=== PATIENT | female | born 1985 | race Caucasian/White ===

== ENCOUNTER 2021-11-26 13:50 | Emergency (ER) | payer OTHER, SELFPAY ==
--- NOTE | ~2021-11-26 | XR_ITS ---
EXAMINATION: XR chest 1V portable INDICATION: Transient alteration of awareness TECHNIQUE: Portable AP chest at 1603 hours COMPARISON: None available FINDINGS: The lungs are free of acute opacities. No pleural effusion or pneumothorax. The cardiomedia stinal silhouette is normal. There is dextrocurvature of the upper thoracic spine. IMPRESSION: 1. No acute cardiopulmonary abnormality. Reviewed, dictated and finalized at location A.
[2021-11-26 13:56] VITALS: BP 109/74; PULSE 91; RESP 16; TEMP 36.4; O2SAT 100
--- NOTE | 2021-11-26 13:59 | ECG_ITS ---
Measurements Intervals [place] Rate: 77 P: 3 UT: 132 QRS: 3 QRSD: 97 T: 7 QT: 374 QTc: 425 Interpretive Statements SINUS RHYTHM INCOMPLETE RIGHT BUNDLE BRANCH BLOCK CONSIDER INFERIOR INFARCT, AGE INDETERMINATE BORDERLINE T WAVE ABNORMALITY- ANTERIOR LEADS BASELINE ARTIFACT- I, V1-V2 ABNORMAL ECG NO PREVIOUS ECG AVAILABLE FOR COMPARISON Electronically Signed On 11-26-2021 15:52:32 CDT by Albert Mosqueda D.O.
--- NOTE | 2021-11-26 14:12 | PC.NURSE ---
patient passed out when attempting to obtain blood work at this time, will attempt again later.
[2021-11-26 15:51] VITALS: BP 120/82; PULSE 82; RESP 20; O2SAT 100
[2021-11-26] MEDS: SODIUM CHLORIDE 0.9% IV 1,000 ML 999 ML IV CONT ×2 (16:03→17:34)
[2021-11-26 16:09] LABS: Basophils Absolute Auto 0.1 K/mm3 (0.0-0.1); Basophils Percent Auto 0.5 % (0.2-1.2); Eosinophils Percent Auto 0.3 % (0-4.4); Hemoglobin 14.3 g/dL (12.0-15.0); Immature Granulocyte Absolute 0.04 K/mm3 (0.00-0.031); Immature Granulocyte Percent A 0.4 % (0-0.5); Mean Corpuscular HGB Conc 32.5 g/dl (32-36); Mean Corpuscular Hemoglobin 29.9 pg (26-34); Mean Corpuscular Volume 92.1 fl (80-100); Mean Platelet Volume 9.1 fl (7.4-10.4); Monocytes Absolute Auto 0.6 K/mm3 (0.1-0.6); Monocytes Percent Auto 5.6 % (2.6-8.5); Neutrophils Absolute Auto 7.7 K/mm3 (1.3-6.7); Neutrophils Percent Auto 77.2 % (45.5-73.1); Platelet Count Result 359 k/mm3 (150-375); Red Blood Count 4.78 M/mm3 (4.2-5.4); Red Cell Distribution Width 12.9 % (11.5-14.5)
--- NOTE | 2021-11-26 16:12 | ED.GENADULT ---
HPI - General Adult General Chief complaint: Syncope Stated complaint: Passed Out, Refused EMS Time Seen by Provider: 11/26/21 15:20 History of Present Illness HPI narrative: This is a 36-year-old female presenting ED with a chief complaint of syncope. Patient gave plasma earlier today. She then went to a restaurant and try to have food. She started to feel warm and flushed and nauseous. When she stood up she syncopized. She returned to baseline 1-2 minutes later. During the event patient did not have chest pain, difficulty breathing, palpitations or shortness of breath. There was no shaking indicating seizure. She did not bite her tongue or urinate in her pants. Related Data Home Medications Medication Instructions Recorded Confirmed No Home Medications 11/26/21 11/26/21 Allergies Allergy/AdvReac Type Severity Reaction Status Date / Time No Known Allergies Allergy Verified 11/26/21 13:56 Review of Systems Review of Systems: CONSTITUTIONAL: Denies night sweats. EYES: No eye pain ENT: Denies rhinorrhea CARDIOVASCULAR: Denies palpitations RESPIRATORY: Denies hemoptysis GASTROINTESTINAL: Denies hematemesis GENITOURINARY: Denies hematuria. SKIN: Denies rash MUSCULOSKELETAL: Denies myalgia. NEUROLOGIC: Denies weakness. PSYCHIATRIC: Denies delusions PMFSH Surgical History Surgical History (Updated 11/26/21 @ 16:15 by Nasim Mercado MD) H/O dilation and curettage History of bunionectomy Social History Social History (Updated 11/26/21 @ 16:15 by Nasim Mercado MD) Social History: Patient denies alcohol use, use a vape cigarette, denies drug use Exam Narrative: APPEARANCE: No apparent distress. patient is well-appearing Head atraumatic. EYES: PERRLA/EOMI, NOSE: Normal no drainage NECK: Supple, Trachea midline RESPIRATORY: CTAB, No increased work of breathing. CARDIOVASCULAR: S1S2 appreciated, no peripheral edema ABDOMINAL: Soft, nontender, nondistended, MUSCULOSKELETAl: No obvious deformities NEURO: Alert. Moving 4/4 extremities SKIN:: Warm, dry. Normal color PSYCHIATRIC: Normal affect Course Vital Signs Vital signs: Vital Signs Temperature 97.6 F 11/26/21 13:56 Pulse Rate 91 11/26/21 13:56 Respiratory Rate 16 11/26/21 13:56 Blood Pressure 109/74 11/26/21 13:56 Pulse Oximetry 100 11/26/21 13:56 Temperature 97.6 F 11/26/21 13:56 Pulse Rate 82 11/26/21 15:51 Respiratory Rate 20 11/26/21 15:51 Blood Pressure 120/82 11/26/21 15:51 Pulse Oximetry 100 11/26/21 15:51 Medical Decision Making MDM Narrative Medical decision making narrative: This is a 36-year-old female presenting to ED following a syncopal event. Given that the patient donated plasma earlier and then had a prodrome is very reassuring. We will still obtain basic lab work, troponin EKG and chest x-ray. Patient given 2 L of fluid. She will be monitored for several hours to ensure no recurrence of her event while on a monitoring manager. Laboratory evaluation was negative. Of note the patient had 2- troponins. EKG interpretation: Rhythm [sinus], Rate 77, [place] -[normal], CA -[normal], QRS [narrow], QTC [normal], T waves -[negative for concerning inversions], ST Segments - [Negative for concerning elevations] Final interpretations: [Normal Sinus Rhythm] Chest x-ray as interpreted by myself was negative for any acute cardiopulmonary disease. patient was monitored for several hours. Do not have recurrence of her symptoms. There are never any cardiac dysrhythmias. Patient is feeling better and like to be going home. Patient will be discharged home with primary care follow-up. Differential Diagnosis Differential Diagnosis: Cardiac dysrhythmia, vasovagal syncope, dehydration, orthostatic hypertension Vital Signs Vital Signs: Vital Signs Temperature 97.6 F 11/26/21 13:56 Pulse Rate 91 11/26/21 13:56 Respiratory Rate 16 11/26/21 13:56 Blood Pressure
[2021-11-26 16:20] LABS: Magnesium 2.2 mg/dL (1.6-2.3)
[2021-11-26 16:25] LABS: Alanine Aminotransferase 15 U/L (6-35); Albumin Level 3.9 g/dL (3.5-5.1); Alkaline Phosphatase 48 U/L (38-126); Anion Gap 10 mmol/L (8-16); Aspartate Amino Transferase 24 U/L (14-36); Bilirubin,Total 0.2 mg/dL (0.2-1.3); Blood Urea Nitrogen 10 mg/dL (7-17); Calcium 8.5 mg/dL (8.4-10.2); Carbon Dioxide 26 mmol/L (22-30); Chloride 101 mmol/L (98-107); Estimated CRCL calculation 107 ml/min; Estimated Glomerular Filt Rate > 60; Glucose 99 mg/dL (65-110); Potassium 3.7 mmol/L (3.4-5.0); Sodium 137 mmol/L (137-145)
[2021-11-26 16:42] LABS: Troponin I < 0.012 ng/mL (0.000-0.034)
[2021-11-26 19:46] LABS: Troponin I < 0.012 ng/mL (0.000-0.034)
[2021-11-26 20:04] VITALS: BP 108/71; PULSE 78; RESP 16; O2SAT 100
== END 2021-11-26 20:04 | disposition home or self-care (01) ==
PROVIDERS: Emergency Medicine; Emergency Provider Emergency Medicine
DX: R55 Syncope and collapse (principal)
CPT/HCPCS: 36415; 71045; 80053; 83735; 84484; 85025; 93005; 96360; 96361; 99284; J7030

== ENCOUNTER 2022-02-02 11:25 | Emergency (ER) | payer OTHER, SELFPAY ==
[2022-02-02 11:37] VITALS: BP 128/85; PULSE 86; RESP 20; TEMP 36.6; O2SAT 99
--- NOTE | 2022-02-02 12:15 | ED.URI ---
HPI - URI/Sore Throat General Chief Complaint: Upper Respiratory Infection Stated Complaint: Cough,Congestion,Fatigue,Body Aches Time Seen by Provider: 02/02/22 12:15 Source: patient Mode of arrival: ambulatory Limitations: no limitations History of Present Illness HPI Narrative: 37-year-old female presents with cough, chest congestion, fatigue for 1 week. Reports fevers 1st couple of days that have since resolved. Is taking Mucinex. Reports mild shortness of breath with exertion. No chest pain or tightness. Took COVID test at home that was negative. is concerned because symptoms are not improving. Denies nausea vomiting diarrhea. All systems reviewed and negative except as noted above. Related Data Allergies Allergy/AdvReac Type Severity Reaction Status Date / Time No Known Allergies Allergy Verified 02/02/22 12:11 Review of Systems Review of Systems: CONSTITUTIONAL: Denies fever, chills, or sweats. Reports fatigue EYES: Denies visual changes, redness, or discharge. ENT: Denies rhinorrhea, congestion, sore throat, or otalgia. CARDIOVASCULAR: Denies chest pain, palpitations, or edema. RESPIRATORY: report cough and dyspnea with exertion. GASTROINTESTINAL: Denies abdominal pain, nausea, vomiting, or diarrhea. GENITOURINARY: Denies dysuria or hematuria. SKIN: Denies rash or itching. MUSCULOSKELETAL: Denies back pain, joint pain, or myalgia. NEUROLOGIC: Denies headache, numbness, or weakness. PSYCHIATRIC: Denies anxiety or depression. All other systems reviewed are negative, except as documented in HPI. PMFSH Surgical History Surgical History (Updated 11/26/21 @ 16:15 by Nasim Mercado MD) H/O dilation and curettage History of bunionectomy Social History Social History (Updated 11/26/21 @ 16:15 by Nasim Mercado MD) Social History: Patient denies alcohol use, use a vape cigarette, denies drug use Comments At time of signature, agree with nursing past medical, surgical, social and family history. There is no relevant family history pertinent to the presenting complaint. Exam Narrative: GENERAL: This is a well-nourished, well-developed patient, in no apparent distress. HEAD: normocephalic, atraumatic. EYES: PERRL. Sclera clear/white. Vision is grossly intact. EARS: External ears normal, auditory canals clear and without drainage, TMs normal without perforation. Hearing grossly intact. NOSE: External nose normal with no obvious nasal discharge, nares without redness, no rhinorrhea. THROAT: Mucous membranes moist, posterior pharynx clear. NECK: Neck supple, non-tender without lymphadenopathy, masses or thyromegaly. CARDIOVASCULAR: Regular rate and rhythm without murmurs, gallops, or rubs. RESPIRATORY: mild expiratory wheezing upper lobes. No rales, or rhonchi. SKIN: warm, Dry, intact with no suspicious lesions or rash, good texture and turgor. NEURO: awake, alert, and oriented to person, place and time. There were no obvious focal neurologic abnormalities. EXTREMITIES: No joint tenderness, effusion, or edema noted. Course Course Level of Care: Express Care Visit Vital Signs Vital signs: Vital Signs Temperature 36.6 C 02/02/22 11:37 Pulse Rate 86 02/02/22 11:37 Respiratory Rate 20 02/02/22 11:37 Blood Pressure 128/85 02/02/22 11:37 Pulse Oximetry 99 02/02/22 11:37 Oxygen Delivery Room Air 02/02/22 11:37 Temperature 36.6 C 02/02/22 11:37 Pulse Rate 86 02/02/22 11:37 Respiratory Rate 20 02/02/22 11:37 Blood Pressure 128/85 02/02/22 11:37 Pulse Oximetry 99 02/02/22 11:37 Oxygen Delivery Room Air 02/02/22 11:37 reviewed MDM - URI/Sore Throat MDM Narrative Medical decision making narrative: Patient is aware of diagnosis, understands and agrees to treatment plan. Anticipatory guidance given. Patient agrees to follow-up as directed and is aware of reasons to seek care at the emergency department. Portions of this record may have been creat
== END 2022-02-02 12:35 | disposition home or self-care (01) ==
PROVIDERS: Emergency Provider Nurse Practitioner Family
DX: J06.9 Acute upper respiratory infection, unspecified (principal)
CPT/HCPCS: 87804; 99213; G0463

== ENCOUNTER 2022-06-25 09:58 | Emergency (ER) | payer OTHER, SELFPAY ==
[2022-06-25 10:23] VITALS: BP 134/84; PULSE 100; RESP 18; TEMP 36.4; O2SAT 100
--- NOTE | 2022-06-25 10:23 | ED.URI ---
HPI - URI/Sore Throat General Chief Complaint: Upper Respiratory Infection Stated Complaint: sorethroat Source: patient Mode of arrival: ambulatory Limitations: no limitations History of Present Illness HPI Narrative: Patient is a 37-year-old female that presents with sore throat, fever, chills, body aches, headache since Friday evening. 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 Has been taking DayQuil, Tylenol, ibuprofen with mild/moderate relief. Patient denies any congestion, cough. Patient is still able to tolerate secretions and eat drink normally. States she broke her fever on the way in here but remained sweaty. Related Data Allergies Allergy/AdvReac Type Severity Reaction Status Date / Time No Known Allergies Allergy Verified 06/25/22 10:21 Review of Systems Review of Systems: All systems reviewed & are unremarkable except as noted in HPI and below Constitutional: Constitutional: Reports body ache(s), Reports chills, Reports fatigue, Reports fever(s), Reports headache(s), Denies malaise and Denies weakness Eyes: Eyes: Denies loss of vision ENT: Denies otalgia, Reports headache(s), Denies nasal congestion, Denies sinus pain and Reports sore throat Cardiovascular: Cardiovascular: Denies chest pain, Denies irregular heart rhythm and Denies dyspnea Respiratory: Respiratory: Denies cough and Denies dyspnea Gastrointestinal: Gastrointestinal: Denies abdominal pain, Denies melena, Denies hematochezia, Denies diarrhea, Denies nausea and Denies vomiting Musculoskeletal: Musculoskeletal: Denies back pain, Denies myalgias and Denies arthralgias Integumentary/Breasts: Skin/Breast: Denies pruritus and Denies rash Neurologic: Denies headache(s), Denies loss of vision and Denies weakness Psychiatric: Psychiatric: Reports no additional psychiatric complaints PMFSH Surgical History Surgical History (Updated 11/26/21 @ 16:15 by Nasim Mercado MD) H/O dilation and curettage History of bunionectomy Social History Social History (Updated 11/26/21 @ 16:15 by Nasim Mercado MD) Social History: Patient denies alcohol use, use a vape cigarette, denies drug use Comments At time of signature, agree with nursing past medical, surgical, social and family history. There is no relevant family history pertinent to the presenting complaint. Exam Const: General: cooperative, healthy appearing, comfortable, no acute distress and well nourished Nutritional Appearance: well nourished Orientation/consciousness: patient oriented x3 Limitations: no limitations HENMT: Head: normal to inspection, normocephalic and atraumatic Ears: hearing grossly normal bilaterally, external ears normal, TM's normal bilaterally and EAC's normal Face/Nose/Sinus: Normal external nose present, Normal nares present, Normal nasal mucous membranes and turbinates present, Normal septum present, normal facial exam, sinuses nontender and face symmetric Face and sinus: normal facial exam, sinuses nontender and face symmetric Mouth: Yes Normal oral and palatal mucosa present, Yes lip normal and Yes moist mucous membranes Teeth and gingiva: dentition normal Throat: uvula midline, abnormal tonsil bilateral erythema, exudates and hypertrophy 3+, posterior oropharynx abnormal edema, erythema and exudates and postnasal drainage Eyes: General: appearance normal, both eyes and all related structures Alignment and Position: alignment normal and position normal Periorbital: periorbital findings normal Eyelids: eyelids normal Pupils: Equal, round and reactive pupils present Neck: Neck: normal visual inspection, full ROM, no lymphadenopathy and supple Chest: Chest palpation & inspection: normal inspection of the chest and normal palpation of entire chest wall Resp: Effort & Inspection: normal respiratory effort and able to speak in complete sentences Auscultation: clear to auscultation bilaterally, no crackles, no rales, no rhonchi and
== END 2022-06-25 10:33 | disposition home or self-care (01) ==
PROVIDERS: Emergency Provider Nurse Practitioner Family; PCP Nurse Practitioner Family
DX: J02.0 Streptococcal pharyngitis (principal); Z86.16 Personal history of COVID-19
CPT/HCPCS: 87880; 99213; G0463